=== PATIENT | male | born 1995 | race Caucasian/White ===

== ENCOUNTER 2017-05-09 09:19 | Emergency (ER) | payer OTHER ==
[~2017-05-09] VITALS: Ht 180.3 cm; Wt 101.0 kg
[~2017-05-09 09:19] MED LIST: ATARAX,VISTARIL25 MG PO; COLACE100 MG PO; CYCLOBENZAPRINE10 MG PO; FERROUS SULFAT325 MG PO; FLEXERIL10 MG PO; HYDROMORPHONE HC4 MG PO; PERCOCET 5/31 TABLET PO; PREDNISONE10 M1 PO
[2017-05-09 10:06] LABS: BASOPHIL COUNT 0.1 K/uL (0-0.1); EOSINOPHIL (%) 2.2 % (0-5); EOSINOPHIL COUNT 0.2 K/uL (0-0.3); HEMATOCRIT 45.4 % (38.0-50.0); IMMATURE GRANULOCYTE (%) 0.5 % (0.0-0.7); IMMATURE GRANULOCYTE COUNT 0.1 K/uL; LYMPHOCYTE COUNT 1.8 K/uL (1.0-2.8); MCH 29.5 PG (29.0-34.0); MCHC 34.8 G/DL (30.0-36.0); MCV 84.9 FL (86-99); MEAN PLAT.VOLUME 9.3 uM^3 (9.0-12.4); MONOCYTE (%) 6.6 % (3-12); MONOCYTE COUNT 0.6 K/uL (0-0.8); NEUTROPHIL (%) 71.5 % (45-76); PLATELET COUNT 324 K/uL (156-360); RBC DIS.WIDTH-CV 11.9 % (11.8-14.6); RBC DIS.WIDTH-SD 36.1 % (39-53); RED BLOOD COUNT 5.35 M/uL (4.00-5.50); WHITE BLOOD COUNT 9.7 K/uL (4.1-10.2)
[2017-05-09 10:12] LABS: INTER. NORMALIZED RATIO 1.1; PROTHROMBIN TIME 12.3 SEC (10.2-12.9)
[2017-05-09 10:22] LABS: CHLORIDE 104 mEq/L (99-109); POTASSIUM 5.2 mEq/L (3.7-5.4); SODIUM 137 mEq/L (136-147)
[2017-05-09 10:25] LABS: GLUCOSE 93 mg/dL (70-99)
[2017-05-09 10:26] LABS: ANION GAP 8 MEQ/L (2-14)
[2017-05-09 10:27] LABS: TOTAL BILIRUBIN 0.6 mg/dL (0.0-1.0)
[2017-05-09 10:28] LABS: ALKALINE PHOSPHATASE 80 IU/L (3-129); GFR ESTIMATE (CALCULATED) > 59 mL/min/
[2017-05-09 10:29] LABS: UREA NITROGEN (BUN) 15 mg/dL (9-23)
[2017-05-09 10:32] LABS: LIPASE 26 U/L (1.0-51.0)
[2017-05-09 11:30] VITALS: BP 163/98
== END 2017-05-09 13:50 | disposition home or self-care (01) ==
LOC: EME 09:19
PROVIDERS: Emergency Medicine
DX: K62.5 Hemorrhage of anus and rectum (principal); F17.200 Nicotine dependence, unspecified, uncomplicated; Z86.73 Personal history of transient ischemic attack (TIA), and cerebral infarction without residual deficits
CPT/HCPCS: 74177; 80053; 83690; 85025; 85610; 99281; 99284; J7030

== ENCOUNTER 2018-03-23 13:48 | Emergency (ER) | payer OTHER ==
[~2018-03-23] VITALS: Ht 180.3 cm; Wt 103.2 kg
[2018-03-23 15:01] LABS: WHITE BLOOD COUNT 10.2 K/uL (4.1-10.2)
[2018-03-23 15:02] LABS: HEMATOCRIT 45.2 % (38.0-50.0); HEMOGLOBIN 16.2 G/DL (12.5-16.6); MCH 30.1 PG (29.0-34.0); MCHC 35.8 G/DL (30.0-36.0); MCV 83.9 FL (86-99); PLATELET COUNT 351 K/uL (156-360); RBC DIS.WIDTH-CV 11.9 % (11.8-14.6); RBC DIS.WIDTH-SD 35.7 % (39-53); RED BLOOD COUNT 5.39 M/uL (4.00-5.50)
[2018-03-23 15:15] LABS: CHLORIDE 107 mEq/L (99-109); POTASSIUM 4.5 mEq/L (3.7-5.4); SODIUM 142 mEq/L (136-147)
[2018-03-23 15:17] LABS: GLUCOSE 75 mg/dL (70-99)
[2018-03-23 15:21] LABS: CREATININE 1.1 mg/dL (0.6-1.3); GFR ESTIMATE (CALCULATED) > 59 mL/min/ (58.99-99999)
[2018-03-23 15:22] LABS: UREA NITROGEN (BUN) 19 mg/dL (9-23)
[2018-03-23 15:23] LABS: CREATINE KINASE 423 IU/L (1-294); TOTAL CK 423 IU/L (1-294)
[2018-03-23 15:25] LABS: TROP-I INTERPRETATION NEGATIVE; TROPONIN-I < 0.01 ng/mL (0.0-0.30)
[2018-03-23 15:29] LABS: CK-MB 3.9 ng/mL (0.0-4.9); CKMB RELATIVE INDEX 0.9 (0.0-3.9)
[2018-03-23 16:15] VITALS: BP 155/76
== END 2018-03-23 16:20 | disposition left against medical advice (07) ==
LOC: EME 13:48 → RME 13:48
DX: T75.4XXA Electrocution, initial encounter (principal); R74.8 Abnormal levels of other serum enzymes; W86.8XXA Exposure to other electric current, initial encounter; Y99.0 Civilian activity done for income or pay; F17.200 Nicotine dependence, unspecified, uncomplicated; Z86.73 Personal history of transient ischemic attack (TIA), and cerebral infarction without residual deficits
CPT/HCPCS: 80048; 82550; 82553; 84484; 85027; 93005; 99281; 99284